=== PATIENT | female | born 1955 | race Caucasian/White ===

== ENCOUNTER 2018-01-29 13:35 | Emergency (ER) | payer BC, OTHER ==
[~2018-01-29] VITALS: Ht 172.7 cm; Wt 103.7 kg
[~2018-01-29 13:35] MED LIST: ALBU1AER INH; ESTRA PO; MEDR4PAK3 PO; NORC7.5T PO; PRED20 PO; PROT40TA PO; ZITH250T PO
[2018-01-29 13:45] VITALS: BP 184/85; PULSE 78; RESP 16; TEMP 98.5; O2SAT 97
--- NOTE | 2018-01-29 14:28 | PD ---
HPI Chief Complaint: Hypertension Time Seen by Provider: 14:09 Travel History International Travel<30 days: No Contact w/Intl Traveler<30days: No Traveled to known affect area: No History of Present Illness HPI The patient is a 62-year-old female who presents to emergency department for elevated blood pressure and headache. The patient has a 7-8 year history of hypertension and has been on LEONILA inhibitors and Norvasc in the past. The patient was taken off of her LEONILA inhibitor after developing a chronic cough, which resolved 1 week after discontinuing the LEONILA inhibitor. The patient was then placed on Norvasc, however, developed itching and was taken off Norvasc and advised to monitor her blood pressure. The patient states over the last week her blood pressure has been elevated with a systolic in the 170s and mild headache. She denies any focal deficits. She does note occasional exertional dyspnea which is chronic, has an appointment with her primary physician, Dr. Zamora, on in regards to this issue. She denies any current chest pain, shortness of breath, nausea, vomiting, abdominal pain, or acute focal deficits. PFSH Past Medical History Asthma: Yes Gastrointestinal Disorders: Yes (BEING WORKED UP FOR STOMACH ULCERS) Herniated Disk: Yes (C5-C6) Musculoskeletal: Yes (DEGENERATIVE DISC DISEASE) Pneumonia: Yes ?: Not Menopausal: Yes : 2 Para: 2 Past Surgical History Abdominal Surgery: Yes (SIGMOIDECTOMY FOR ENDOMETRIOSIS) Appendectomy: Yes Section: Yes Hysterectomy: Yes Joint Replacement: Yes (BILATERAL KNEES: RIGHT: 2011, LEFT: 2013) Tonsillectomy: Yes Social History Alcohol Use: Yes (RARELY) Tobacco Use: No (QUIT 1988) Substance Use: No Allergies-Medications (Allergen,Severity, Reaction): Coded Allergies: guaifenesin (Unverified Allergy, Severe, Swelling, 01/29/18) "MAKES MY THROAT FEEL TIGHT" omeprazole (Unverified Allergy, Unknown, STATES NOT ALLERGIC, 01/29/18) Reported Meds & Prescriptions Reported Meds & Active Scripts Active Reported Norvasc (Amlodipine Besylate) 2.5 Mg Tab 2.5 Mg PO DAILY Eemt Ds 1.25-2.5 mg Tablet (Estrogen,Luna/Me-Testosterone) 1.25 Mg-2.5 Mg Tablet 1 Tab PO DAILY Proair Hfa 8.5 GM Inh (Albuterol Sulfate) 90 Mcg/Act Aer 1 Puff INH Q4H PRN 108 mcg/actuation Review of Systems Except as stated in HPI: all other systems reviewed are Neg Eyes: No: Blurred Vision HENT: Positive: Headaches Cardiovascular: Positive: Dyspnea on exertion, No: Chest Pain or Discomfort Respiratory: No: Shortness of Breath Gastrointestinal: No: Nausea, Vomiting, Abdominal Pain Neurologic: Positive: Headache, No: Dizziness, Focal Abnormalities, Change in Mentation, Paresthesia, Sensory Disturbance Physical Exam Narrative GENERAL: Awake, alert, pleasant 8-year-old female who appears her stated age and is in no acute respiratory distress. SKIN: Focused skin assessment warm/dry. HEAD: Atraumatic. Normocephalic. EYES: Pupils equal and round. 2 mm bilateral and reactive. Patient is wearing glasses and reading an electronic book.. NECK: Trachea midline. No JVD. CARDIOVASCULAR: Regular rate and rhythm. No murmur appreciated. RESPIRATORY: No accessory muscle use. Clear to auscultation. Breath sounds equal bilaterally. MUSCULOSKELETAL: No obvious deformities. No clubbing. No cyanosis. No edema. NEUROLOGICAL: Awake and alert. No obvious cranial nerve deficits. Motor grossly within normal limits. Normal speech. Nonfocal. Oriented 4. Follows commands without difficulty. PSYCHIATRIC: Appropriate mood and affect; insight and judgment normal. Data Data Last Documented VS Vital Signs Date Time Temp Pulse Resp B/P (MAP) Pulse Ox O2 Delivery O2 Flow Rate FiO2 01/29/18 15:30 88 16 142/83 (102) 98 01/29/18 14:45 Room Air 01/29/18 13:45 98.5 Orders Orders Electrocardiogram (01/29/18 ) Complete Blood Count With Diff (01/29/18 14:22) Comprehensive Metabolic Panel (01/29/18 14:22) Acetaminophen (Tylenol) (01/29/18 15:45) Labs Laboratory Tests Test 01/29/18 14:35 White Blood Count 5.1 TH/MM3 Red Blood Count 4.23 MIL/MM3 Hemoglobin 13.5 GM/DL Hematocrit 39.9 % Mean Corpuscular Volume 94.4 FL Mean Corpuscular Hemoglobin 31.9 PG Mean Corpuscular Hemoglobin Concent 33.8 % Red Cell Distribution Width 13.1 % Platelet Count 307 TH/MM3 Mean Platelet Volume 7.7 FL Neutrophils (%) (Auto) 65.5 % Lymphocytes (%) (Auto) 23.1 % Monocytes (%) (Auto) 9.6 % Eosinophils (%) (Auto) 0.9 % Basophils (%) (Auto) 0.9 % Neutrophils # (Auto) 3.4 TH/MM3 Lymphocytes # (Auto) 1.2 TH/MM3 Monocytes # (Auto) 0.5 TH/MM3 Eosinophils # (Auto) 0.0 TH/MM3 Basophils # (Auto) 0.0 TH/MM3 CBC Comment DIFF FINAL Differential Comment Blood Urea Nitrogen 9 MG/DL Creatinine 0.78 MG/DL Random Glucose 104 MG/DL Total Protein 7.1 GM/DL Albumin 3.8 GM/DL Calcium Level 8.5 MG/DL Alkaline Phosphatase 82 U/L Aspartate Amino Transf (AST/SGOT) 16 U/L Alanine Aminotransferase (ALT/SGPT) 23 U/L Total Bilirubin 0.5 MG/DL Sodium Level 142 MEQ/L Potassium Level 3.7 MEQ/L Chloride Level 107 MEQ/L Carbon Dioxide Level 27.6 MEQ/L Anion Gap 7 MEQ/L Estimat Glomerular Filtration Rate 75 ML/MIN [facility] Medical Decision Making Medical Screen Exam Complete: Yes Emergency Medical Condition: Yes Medical Record Reviewed: Yes Interpretation(s) EKG reveals normal sinus rhythm with a rate of 72. Inverted T-wave in V2. Low QRS voltage in precordial leads. Laboratory Tests Test 01/29/18 14:35 White Blood Count 5.1 TH/MM3 Red Blood Count 4.23 MIL/MM3 Hemoglobin 13.5 GM/DL Hematocrit 39.9 % Mean Corpuscular Volume 94.4 FL Mean Corpuscular Hemoglobin 31.9 PG Mean Corpuscular Hemoglobin Concent 33.8 % Red Cell Distribution Width 13.1 % Platelet Count 307 TH/MM3 Mean Platelet Volume 7.7 FL Neutrophils (%) (Auto) 65.5 % Lymphocytes (%) (Auto) 23.1 % Monocytes (%) (Auto) 9.6 % Eosinophils (%) (Auto) 0.9 % Basophils (%) (Auto) 0.9 % Neutrophils # (Auto) 3.4 TH/MM3 Lymphocytes # (Auto) 1.2 TH/MM3 Monocytes # (Auto) 0.5 TH/MM3 Eosinophils # (Auto) 0.0 TH/MM3 Basophils # (Auto) 0.0 TH/MM3 CBC Comment DIFF FINAL Differential Comment Blood Urea Nitrogen 9 MG/DL Creatinine 0.78 MG/DL Random Glucose 104 MG/DL Total Protein 7.1 GM/DL Albumin 3.8 GM/DL Calcium Level 8.5 MG/DL Alkaline Phosphatase 82 U/L Aspartate Amino Transf (AST/SGOT) 16 U/L Alanine Aminotransferase (ALT/SGPT) 23 U/L Total Bilirubin 0.5 MG/DL Sodium Level 142 MEQ/L Potassium Level 3.7 MEQ/L Chloride Level 107 MEQ/L Carbon Dioxide Level 27.6 MEQ/L Anion Gap 7 MEQ/L Estimat Glomerular Filtration Rate 75 ML/MIN Differential Diagnosis Differential diagnosis includes hypertension, hypertensive urgency, hypertensive emergency, chronic kidney disease, cephalgia, tension headache. Narrative Course EKG was ordered and interpreted. IV was established, labs are drawn and sent, and the patient was placed on cardiac telemetry monitoring and continuous pulse oximetry monitoring. CBC is unremarkable. CMP is unremarkable. BUN and creatinine are normal. The patient will be placed on an ARB inhibitor, will be provided a copy of her labs, and will be referred to her primary physician. She was provided Tylenol 650 mg orally for her headache. The patient will be placed on Cozaar 50 mg daily, is going to follow-up with her primary physician, Dr. Zamora, on . She will be provided a copy of her labs at discharge Diagnosis Primary Impression: Hypertension Qualified Codes: I10 - Essential (primary) hypertension Patient Instructions: General Instructions Additional Instructions: Please provide the patient a copy of her labs at discharge. Losartan as directed. Follow-up with Dr. Zamora as scheduled on . Med/Other Pt SpecificInfo: Prescription(s) given Scripts Losartan (Losartan) 50 Mg Tab 50 MG PO DAILY for Blood Pressure Management for 7 Days, #7 TAB 0 Refills Prov: Jaison Reyes MD 01/29/18 Disposition: DISCHARGE HOME Condition: Stable Jaison Reyes MD Jan 29, 2018 14:28
[2018-01-29 14:45] VITALS: BP 173/93; PULSE 77; RESP 18; O2SAT 97
[2018-01-29 14:54] LABS: AUTOMATED NEUTROPHIL # 3.4 TH/MM3 (1.8-7.7); BASOPHIL % 0.9 % (0.0-2.0); EOSINOPHIL % 0.9 % (0.0-4.0); HEMATOCRIT 39.9 % (35.0-46.0); HEMOGLOBIN 13.5 GM/DL (11.6-15.3); LYMPH % 23.1 % (9.0-44.0); LYMPHOCYTE # 1.2 TH/MM3 (1.0-4.8); MEAN CELL VOLUME 94.4 FL (80.0-100.0); MEAN CORPUSCULAR HEMOGLOBIN 31.9 PG (27.0-34.0); MEAN CORPUSCULAR HGB CONC 33.8 % (32.0-36.0); MEAN PLATELET VOLUME 7.7 FL (7.0-11.0); MONO % 9.6 % (0.0-8.0); MONOCYTE # 0.5 TH/MM3 (0-0.9); NEUT % 65.5 % (16.0-70.0); PLATELET COUNT 307 TH/MM3 (150-450); RED BLOOD COUNT 4.23 MIL/MM3 (4.00-5.30); RED CELL DISTRIBUTION WIDTH 13.1 % (11.6-17.2); WHITE BLOOD COUNT 5.1 TH/MM3 (4.0-11.0)
[2018-01-29] MEDS ORDERED: ALBUAER3 INH (14:56)
[2018-01-29] MEDS ORDERED: NORV2.5T PO (14:56)
[2018-01-29] MEDS ORDERED: [UNRECOGNIZED DRUG - CODE] PO (14:56)
[2018-01-29 15:03] LABS: CHLORIDE 107 MEQ/L (98-107); SODIUM (NA) 142 MEQ/L (136-145)
[2018-01-29 15:06] LABS: CALCIUM 8.5 MG/DL (8.5-10.1)
[2018-01-29 15:07] LABS: ALBUMIN 3.8 GM/DL (3.4-5.0); BICARBONATE 27.6 MEQ/L (21.0-32.0); BLOOD UREA NITROGEN 9 MG/DL (7-18); GLUCOSE,RANDOM 104 MG/DL (74-106)
[2018-01-29 15:10] LABS: ALT (GPT) 23 U/L (10-53); AST (GOT) 16 U/L (15-37); CREATININE 0.78 MG/DL (0.50-1.00); GLOMERULAR FILTRATION RATE 75 ML/MIN (>89)
[2018-01-29 15:11] LABS: TOTAL BILIRUBIN ADULT 0.5 MG/DL (0.2-1.0); TOTAL PROTEIN 7.1 GM/DL (6.4-8.2)
[2018-01-29 15:13] LABS: ALKALINE PHOSPHATASE 82 U/L (45-117)
[2018-01-29 15:30] VITALS: BP 142/83; PULSE 88; RESP 16; O2SAT 98
[2018-01-29] MEDS ORDERED: ACETAMINOPHEN 325 MG TAB PO ONE (15:45)
[2018-01-29] MEDS ORDERED: LOSA50TA PO (15:48)
[2018-01-29] MEDS ORDERED: LOSARTAN 50 MG TAB PO ONE (16:00)
[2018-01-29 16:20] VITALS: BP 149/84
[2018-01-29 16:27] VITALS: RESP 17
--- NOTE | 2018-01-30 14:25 | EKG ---
Date Performed: 01/29/2018 Time Performed: 14:52:21 PTAGE: 62 years EKG: Sinus rhythm POOR R WAVE PROGRESSION NO PREVIOUS TRACING DOCTOR: Guzman Pineda Interpretating Date/Time 01/30/2018 14:23:43
== END 2018-01-29 16:27 | disposition home or self-care (01) ==
LOC: PHED 13:35
DX: I10 Essential (primary) hypertension (principal); J45.909 Unspecified asthma, uncomplicated
CPT/HCPCS: 80053; 85025; 93005; 99284